=== PATIENT | female | born 1975 | race Caucasian/White ===

== ENCOUNTER 2024-03-23 18:28 | Emergency (ER) | payer OTHER ==
[~2024-03-23] VITALS: Ht 170.2 cm; Wt 77.0 kg
[2024-03-23 19:23] LABS: BASOPHILS % 0.3 % (0.0-2.0); EOSINOPHILS % 1.4 % (0.0-5.0); HEMOGLOBIN. 13.4 g/dL (12.0-16.0); LYMPHOCYTES % 33.7 % (20.0-50.0); MEAN CORPUSCULAR HEMOGLOBIN 30.3 pg (28.0-32.0); MEAN CORPUSCULAR HGB CONC 34.5 g/dL (31.0-37.0); MEAN CORPUSCULAR VOLUME 87.9 fL (81.0-99.0); MEAN PLATELET VOLUME 8.2 fl (7.4-10.4); MONOCYTES % 9.4 % (2.0-8.0); NEUTROPHILS % 55.2 % (40.0-76.0); PLATELET 238 x1000/uL (130-400); RED BLOOD CELL COUNT 4.43 mill/uL (4.2-5.4); RED CELL DISTRIBUTION WIDTH 16.6 % (11.6-14.6)
[2024-03-23 19:29] LABS: CHLORIDE 105 mEq/L (98-107); SODIUM 139 mEq/L (136-145)
[2024-03-23 19:30] LABS: CALCIUM 9.5 mg/dL (8.7-10.4); CARBON DIOXIDE 28 mEq/L (21-32)
[2024-03-23] MEDS: OLANZAPINE 10 MG/VIAL IM ONE (19:30)
[2024-03-23 19:35] LABS: CREATININE 1.1 mg/dL (0.6-1.0); GLUCOSE 79 mg/dL (70-105); UREA NITROGEN BLOOD 17 mg/dL (9-23)
[2024-03-23 19:36] LABS: ETHANOL BLOOD < 10 mg/dL (<10)
[2024-03-23 19:37] LABS: ACETAMINOPHEN < 2 ug/mL (10-30)
[2024-03-23] MEDS: HALOPERIDOL LACTATE 5MG/ML VIAL IM ONE (20:00)
[2024-03-23] MEDS: POTASSIUM CHLORIDE 20MEQ/PACKET PO ONE (20:30)
[2024-03-23] MEDS: POTASSIUM CHLORIDE 20MEQ/PACKET PO NR (22:55)
[2024-03-23] MEDS: ACETAMINOPHEN 325MG TABLET PO ONE (22:55)
[2024-03-23] MEDS: HALOPERIDOL LACTATE 5MG/ML VIAL IM NR (22:56)
[2024-03-24] MEDS: ACETAMINOPHEN 500MG TABLET PO ONE (05:50)
[2024-03-24] MEDS: MIDAZOLAM HCL 2 MG/2 ML VIAL IM ONE (12:23)
[2024-03-24] MEDS: HALOPERIDOL LACTATE 5MG/ML VIAL IM ONE (12:23)
[2024-03-24 13:17] VITALS: O2SAT 99
[2024-03-24] MEDS ORDERED: OLANZAPINE 10MG TABLET PO SCH (20:30)
[2024-03-24 20:41] LABS: CLARITY URINE CLEAR (CLEAR); COLOR URINE YELLOW (YELLOW); GLUCOSE URINE NEGATIVE (NEGATIVE); KETONES URINE NEGATIVE (NEGATIVE); LEUKOCYTE ESTERASE URINE TRACE (NEGATIVE); NITRITE URINE NEGATIVE (NEGATIVE); OCCULT BLOOD URINE NEGATIVE (NEGATIVE); PH URINE 7.5 (4.5-8.0); PROTEIN URINE NEGATIVE (NEGATIVE); SPECIFIC GRAVITY URINE 1.013 (1.005-1.030)
[2024-03-24 20:49] LABS: *AMPHETAMINES SCREEN URINE PRESUMPTIVE POSITIVE (NEGATIVE); *BARBITURATES SCREEN URINE NEGATIVE (NEGATIVE); *BENZODIAZEPINES SCREEN URINE PRESUMPTIVE POSITIVE (NEGATIVE); *COCAINE SCREEN URINE NEGATIVE (NEGATIVE); CANNABINOID URINE SCREEN PRESUMPTIVE POSITIVE (NEGATIVE); ECSTASY MDMA SCREEN URINE NEGATIVE (NEGATIVE); METHADONE URINE SCREEN NEGATIVE (NEGATIVE); OPIATES URINE SCREEN NEGATIVE (NEGATIVE); PHENCYCLIDINE URINE SCREEN NEGATIVE (NEGATIVE)
[2024-03-24 20:57] LABS: BACTERIA URINE 1+; SQUAMOUS EPITHELIAL CELL URINE FEW /lpf (RARE/1+)
[2024-03-24 20:58] LABS: RBC URINE 0-2 /hpf (0-2); WBC URINE 0-2 /hpf (0-2)
[2024-03-24] MEDS: OLANZAPINE 5MG TABLET ODT PO SCH (21:26)
[2024-03-25] MEDS: HALOPERIDOL LACTATE 5MG/ML VIAL IM ONE (10:49)
[2024-03-25] MEDS: LORAZEPAM 2MG/ML INJ IM ONE (10:49)
[2024-03-25] MEDS: TRAZODONE HCL 50MG TABLET PO SCH (17:35)
[2024-03-25] MEDS: DIPHENHYDRAMINE 50MG/ML VIAL IM PRN (19:19)
[2024-03-27 10:15] VITALS: BP 141/79; PULSE 70; RESP 16; TEMP 98.7
== END 2024-03-27 10:30 | disposition home or self-care (01) ==
LOC: ER 18:28
DX: R45.851 Suicidal ideations (principal); F23 Brief psychotic disorder; Z98.890 Other specified postprocedural states; Z20.822 Contact with and (suspected) exposure to COVID-19
CPT/HCPCS: 80305; 80048; 81003; 80307; 80329; 80320; 85025; 36415; 96372 ×3; 99291; 87426; J3490; J1630 ×2; J2060; J2250; Z7610 ×2; G0480

== ENCOUNTER 2024-04-08 14:23 | Emergency (ER) | payer OTHER ==
[~2024-04-08] VITALS: Ht 177.8 cm; Wt 90.0 kg
[2024-04-08 14:25] VITALS: O2SAT 99
[2024-04-08 16:16] LABS: BASOPHILS % 0.4 % (0.0-2.0); EOSINOPHILS % 1.6 % (0.0-5.0); HEMOGLOBIN. 12.4 g/dL (12.0-16.0); LYMPHOCYTES % 18.8 % (20.0-50.0); MEAN CORPUSCULAR HEMOGLOBIN 30.1 pg (28.0-32.0); MEAN CORPUSCULAR HGB CONC 33.5 g/dL (31.0-37.0); MEAN CORPUSCULAR VOLUME 89.9 fL (81.0-99.0); MEAN PLATELET VOLUME 8.1 fl (7.4-10.4); MONOCYTES % 11.9 % (2.0-8.0); NEUTROPHILS % 67.3 % (40.0-76.0); PLATELET 171 x1000/uL (130-400); RED BLOOD CELL COUNT 4.11 mill/uL (4.2-5.4); RED CELL DISTRIBUTION WIDTH 14.9 % (11.6-14.6); WHITE BLOOD COUNT 4.3 x1000/uL (4.5-11.0)
[2024-04-08 16:22] LABS: CHLORIDE 106 mEq/L (98-107); SODIUM 142 mEq/L (136-145)
[2024-04-08 16:23] LABS: CALCIUM 9.3 mg/dL (8.7-10.4); CARBON DIOXIDE 29 mEq/L (21-32)
[2024-04-08 16:28] LABS: CREATININE 1.1 mg/dL (0.6-1.0); GLUCOSE 112 mg/dL (70-105); UREA NITROGEN BLOOD 16 mg/dL (9-23)
[2024-04-08 16:30] LABS: ACETAMINOPHEN < 2 ug/mL (10-30)
[2024-04-08 16:37] LABS: HCG SCREEN NEGATIVE
[2024-04-08 16:38] LABS: ETHANOL BLOOD < 10 mg/dL (<10); POTASSIUM 2.8 mEq/L (3.5-5.1)
[2024-04-09 01:00] LABS: CLARITY URINE CLOUDY (CLEAR); COLOR URINE YELLOW (YELLOW); GLUCOSE URINE NEGATIVE (NEGATIVE); KETONES URINE NEGATIVE (NEGATIVE); LEUKOCYTE ESTERASE URINE NEGATIVE (NEGATIVE); NITRITE URINE NEGATIVE (NEGATIVE); OCCULT BLOOD URINE NEGATIVE (NEGATIVE); PH URINE 7.5 (4.5-8.0); PROTEIN URINE NEGATIVE (NEGATIVE); SPECIFIC GRAVITY URINE 1.015 (1.005-1.030)
[2024-04-09 01:07] LABS: *AMPHETAMINES SCREEN URINE PRESUMPTIVE POSITIVE (NEGATIVE); *BARBITURATES SCREEN URINE NEGATIVE (NEGATIVE); *BENZODIAZEPINES SCREEN URINE NEGATIVE (NEGATIVE); *COCAINE SCREEN URINE NEGATIVE (NEGATIVE); ECSTASY MDMA SCREEN URINE NEGATIVE (NEGATIVE); METHADONE URINE SCREEN NEGATIVE (NEGATIVE); OPIATES URINE SCREEN NEGATIVE (NEGATIVE); PHENCYCLIDINE URINE SCREEN NEGATIVE (NEGATIVE)
[2024-04-09] MEDS: MELATONIN 3MG TABLET PO SCH (01:15)
[2024-04-09] MEDS: DIPHENHYDRAMINE 25MG CAPSULE PO ONE (01:32)
[2024-04-09] MEDS: OLANZAPINE 10MG TABLET PO SCH (01:32)
[2024-04-09 02:43] LABS: SQUAMOUS EPITHELIAL CELL URINE FEW /lpf (RARE/1+)
[2024-04-09 02:46] LABS: RBC URINE 0-2 /hpf (0-2); WBC URINE 0-2 /hpf (0-2)
[2024-04-09 02:47] LABS: AMORPHOUS SEDIMENT URINE 1+ /lpf; BACTERIA URINE NONE SEEN
[2024-04-09 06:39] LABS: CHLORIDE 104 mEq/L (98-107); SODIUM 140 mEq/L (136-145)
[2024-04-09 06:40] LABS: CALCIUM 8.8 mg/dL (8.7-10.4); CARBON DIOXIDE 30 mEq/L (21-32)
[2024-04-09 06:45] LABS: CREATININE 0.7 mg/dL (0.6-1.0); GLUCOSE 77 mg/dL (70-105); UREA NITROGEN BLOOD 13 mg/dL (9-23)
[2024-04-09] MEDS: POTASSIUM CHLORIDE 20MEQ TABLET SR PO NR (07:00)
[2024-04-09 08:47] LABS: POTASSIUM 2.8 mEq/L (3.5-5.1)
[2024-04-09] MEDS: POTASSIUM CHLORIDE 20MEQ/PACKET PO ONE (09:55)
[2024-04-09] MEDS: HALOPERIDOL LACTATE 5MG/ML VIAL IM ONE (11:22)
[2024-04-09] MEDS: LORAZEPAM 2MG/ML INJ IM ONE (11:22)
[2024-04-09] MEDS: KCL 20MEQ/100ML PREMIX 100 ML IV ONE (15:00)
[2024-04-09] MEDS: MAGNESIUM 1 G PREMIX 100 ML IV ONE (15:00)
[2024-04-09] MEDS ORDERED: POTASSIUM CHLORIDE 20MEQ/PACKET PO ONE (15:00)
[2024-04-09 15:49] LABS: CHLORIDE 103 mEq/L (98-107); POTASSIUM 3.1 mEq/L (3.5-5.1); SODIUM 138 mEq/L (136-145)
[2024-04-09 15:50] LABS: CARBON DIOXIDE 30 mEq/L (21-32)
[2024-04-09 15:51] LABS: CALCIUM 8.8 mg/dL (8.7-10.4)
[2024-04-09 15:55] LABS: CREATININE 0.7 mg/dL (0.6-1.0); GLUCOSE 84 mg/dL (70-105); UREA NITROGEN BLOOD 13 mg/dL (9-23)
[2024-04-09] MEDS: MAGNESIUM OXIDE 400MG TABLET PO SCH (18:04)
[2024-04-09] MEDS: POTASSIUM CHLORIDE 20MEQ/PACKET PO NR (18:05)
[2024-04-09 21:41] LABS: CHLORIDE 103 mEq/L (98-107); POTASSIUM 3.4 mEq/L (3.5-5.1); SODIUM 138 mEq/L (136-145)
[2024-04-09 21:42] LABS: CARBON DIOXIDE 29 mEq/L (21-32)
[2024-04-09 21:47] LABS: CREATININE 0.8 mg/dL (0.6-1.0); GLUCOSE 103 mg/dL (70-105); UREA NITROGEN BLOOD 11 mg/dL (9-23)
[2024-04-10] MEDS: MAGNESIUM OXIDE 400MG TABLET PO SCH (01:26)
[2024-04-10 13:15] VITALS: BP 144/70; PULSE 66; RESP 16; TEMP 97.9
== END 2024-04-10 13:21 ==
LOC: ER 14:32
DX: R45.851 Suicidal ideations (principal); F20.9 Schizophrenia, unspecified; I10 Essential (primary) hypertension; F12.90 Cannabis use, unspecified, uncomplicated; F15.90 Other stimulant use, unspecified, uncomplicated
CPT/HCPCS: 80305; 80048; 81003; 80307; 80329; 80320; 84703; 83735; 85025; 36415; 99285; 87426; 96372; Z7610; Q0163; J1630; J2060; G0480

== ENCOUNTER 2024-05-10 20:50 | Emergency (ER) | payer OTHER ==
[~2024-05-10] VITALS: Ht 167.6 cm; Wt 113.0 kg
[2024-05-10] MEDS: MIDAZOLAM HCL 2 MG/2 ML VIAL IM NR (22:15)
[2024-05-10] MEDS: HALOPERIDOL LACTATE 5MG/ML VIAL IM NR (22:15)
[2024-05-11] MEDS: MIDAZOLAM HCL 2 MG/2 ML VIAL IM ONE ×2 (02:46→04:51)
[2024-05-11] MEDS: DIPHENHYDRAMINE 50MG/ML VIAL IM ONE (05:00)
[2024-05-11] MEDS: DIPHENHYDRAMINE 50MG/ML VIAL IM NR (07:02)
[2024-05-11 07:08] VITALS: TEMP 98.2
[2024-05-11 07:58] VITALS: O2SAT 98
[2024-05-11] MEDS: LORAZEPAM 2MG/ML INJ IM ONE (08:58)
[2024-05-11] MEDS: OLANZAPINE 10 MG/VIAL IM ONE (08:58)
[2024-05-11 16:05] VITALS: BP 139/75; PULSE 89; RESP 17
[2024-05-11] MEDS: METFORMIN HCL 500MG TABLET PO SCH (17:00)
== END 2024-05-11 17:37 | disposition home or self-care (01) ==
LOC: ER 20:50
DX: R45.1 Restlessness and agitation (principal); F12.10 Cannabis abuse, uncomplicated; F15.10 Other stimulant abuse, uncomplicated; I10 Essential (primary) hypertension; E11.9 Type 2 diabetes mellitus without complications; M54.2 Cervicalgia; Z98.890 Other specified postprocedural states; W01.0XXA Fall on same level from slipping, tripping and stumbling without subsequent striking against object, initial encounter; Y93.89 Activity, other specified; Y92.89 Other specified places as the place of occurrence of the external cause; Y99.8 Other external cause status
CPT/HCPCS: 96372 ×2; 99291; 70450; 72125; J1630; J2250 ×2; Z7610 ×7; J3490; J1200; J2060; C1893; 80305

== ENCOUNTER 2024-05-13 01:03 | Emergency (ER) | payer OTHER ==
[~2024-05-13] VITALS: Ht 167.6 cm; Wt 77.0 kg
[2024-05-13 01:08] VITALS: BP 130/61; PULSE 70; RESP 16; TEMP 98.5; O2SAT 98
== END 2024-05-13 04:17 | disposition home or self-care (01) ==
LOC: ER 01:03
DX: R45.1 Restlessness and agitation (principal); F41.9 Anxiety disorder, unspecified; E11.9 Type 2 diabetes mellitus without complications; I10 Essential (primary) hypertension; Z98.890 Other specified postprocedural states
CPT/HCPCS: 99283

== ENCOUNTER 2024-05-15 08:46 | Emergency (ER) | payer OTHER ==
[~2024-05-15] VITALS: Ht 170.2 cm; Wt 80.0 kg
[2024-05-15 08:50] VITALS: BP 127/93; PULSE 64; RESP 16; O2SAT 98
[2024-05-15] MEDS ORDERED: TOPUD PO (08:54)
[2024-05-15 09:09] VITALS: TEMP 98.2
[2024-05-15] MEDS: ACETAMINOPHEN 325MG TABLET PO ONE (09:09)
== END 2024-05-15 09:53 | disposition home or self-care (01) ==
LOC: ER 08:46
DX: G89.29 Other chronic pain (principal); M79.10 Myalgia, unspecified site; E11.9 Type 2 diabetes mellitus without complications; I10 Essential (primary) hypertension
CPT/HCPCS: 99283

== ENCOUNTER 2024-05-15 15:13 | Emergency (ER) | payer OTHER ==
[~2024-05-15] VITALS: Ht 182.9 cm; Wt 110.0 kg
[~2024-05-15 15:13] MED LIST: TOPUD PO
[2024-05-15 15:16] VITALS: O2SAT 98
[2024-05-15] MEDS: HALOPERIDOL LACTATE 5MG/ML VIAL IM ONE (15:43)
[2024-05-15] MEDS: LORAZEPAM 2MG/ML INJ IM ONE (15:43)
[2024-05-15 20:23] VITALS: BP 143/66; PULSE 70; RESP 16; TEMP 98.5
== END 2024-05-15 20:24 | disposition home or self-care (01) ==
LOC: ER 15:13
DX: F10.129 Alcohol abuse with intoxication, unspecified (principal); E11.9 Type 2 diabetes mellitus without complications; I10 Essential (primary) hypertension; G31.89 Other specified degenerative diseases of nervous system; Y90.9 Presence of alcohol in blood, level not specified
CPT/HCPCS: 70450; 72125; 96372; 99291; J1630; J2060; Z7610

== ENCOUNTER 2024-05-16 14:53 | Emergency (ER) | payer OTHER ==
[~2024-05-16] VITALS: Ht 170.2 cm; Wt 70.0 kg
[2024-05-16 14:57] VITALS: BP 116/78; PULSE 79; RESP 20; TEMP 98.6; O2SAT 99
== END 2024-05-16 16:53 | disposition left against medical advice (07) ==
LOC: ER 14:53
DX: R51.9 Headache, unspecified (principal); Z53.21 Procedure and treatment not carried out due to patient leaving prior to being seen by health care provider

== ENCOUNTER 2024-05-28 15:33 | Emergency (ER) | payer OTHER ==
[~2024-05-28] VITALS: Ht 165.1 cm; Wt 80.0 kg
[2024-05-28 15:52] VITALS: BP 116/82; PULSE 66; RESP 18; TEMP 98.7; O2SAT 99
== END 2024-05-28 19:45 | disposition left against medical advice (07) ==
LOC: ER 15:33
DX: M25.562 Pain in left knee (principal); Z53.21 Procedure and treatment not carried out due to patient leaving prior to being seen by health care provider

== ENCOUNTER 2024-05-29 07:20 | Emergency (ER) | payer OTHER ==
[~2024-05-29] VITALS: Ht 167.6 cm; Wt 82.0 kg
[2024-05-29 07:33] VITALS: BP 126/73; PULSE 68; RESP 18; O2SAT 97
[2024-05-29 09:03] VITALS: TEMP 98.5
[2024-05-29] MEDS: ACETAMINOPHEN 500MG TABLET PO SCH (09:03)
[2024-05-30] MEDS ORDERED: SULF1TAB48 MT (10:54)
[2024-05-30] MEDS ORDERED: CEPH500C2 MT (10:54)
[2024-05-30] MEDS ORDERED: IBUP-2029 MT (10:55)
== END 2024-05-29 09:22 | disposition home or self-care (01) ==
LOC: ER 07:20
DX: R52 Pain, unspecified (principal); E11.9 Type 2 diabetes mellitus without complications; I10 Essential (primary) hypertension; F10.20 Alcohol dependence, uncomplicated; Y90.9 Presence of alcohol in blood, level not specified
CPT/HCPCS: 99283

== ENCOUNTER 2024-05-29 12:24 | Emergency (ER) | payer OTHER ==
[~2024-05-29] VITALS: Ht 170.2 cm; Wt 75.0 kg
[2024-05-29 12:29] VITALS: BP 104/63; PULSE 71; RESP 18; TEMP 98.4; O2SAT 99
[2024-05-29 13:16] LABS: CHLORIDE 99 mEq/L (98-107); SODIUM 136 mEq/L (136-145)
[2024-05-29 13:17] LABS: CARBON DIOXIDE 32 mEq/L (21-32)
[2024-05-29 13:18] LABS: CALCIUM 9.4 mg/dL (8.7-10.4)
[2024-05-29 13:21] LABS: BASOPHILS % 0.3 % (0.0-2.0); EOSINOPHILS % 0.8 % (0.0-5.0); HEMATOCRIT. 34.5 % (36.0-48.0); HEMOGLOBIN. 11.7 g/dL (12.0-16.0); LYMPHOCYTES % 14.5 % (20.0-50.0); MEAN CORPUSCULAR HEMOGLOBIN 29.8 pg (28.0-32.0); MEAN CORPUSCULAR HGB CONC 33.9 g/dL (31.0-37.0); MEAN PLATELET VOLUME 7.9 fl (7.4-10.4); MONOCYTES % 8.4 % (2.0-8.0); PLATELET 280 x1000/uL (130-400); RED BLOOD CELL COUNT 3.92 mill/uL (4.2-5.4); RED CELL DISTRIBUTION WIDTH 13.3 % (11.6-14.6); WHITE BLOOD COUNT 7.8 x1000/uL (4.5-11.0)
[2024-05-29 13:22] LABS: GLUCOSE 143 mg/dL (70-105); UREA NITROGEN BLOOD 37 mg/dL (9-23)
[2024-05-29 13:24] LABS: ACETAMINOPHEN 3 ug/mL (10-30)
[2024-05-29 13:39] LABS: POTASSIUM 2.5 mEq/L (3.5-5.1)
[2024-05-29 13:40] LABS: CREATININE 1.8 mg/dL (0.6-1.0); ETHANOL BLOOD < 10 mg/dL (<10)
[2024-05-29] MEDS ORDERED: POTASSIUM CHLORIDE 20MEQ TABLET SR PO NR (14:45)
[2024-05-29] MEDS ORDERED: KCL 20MEQ/100ML PREMIX 100 ML IV SCH (15:00)
[2024-05-30] MEDS ORDERED: CEPH500C2 MT (10:54)
[2024-05-30] MEDS ORDERED: SULF1TAB48 MT (10:54)
[2024-05-30] MEDS ORDERED: IBUP-2029 MT (10:55)
== END 2024-05-29 14:51 | disposition left against medical advice (07) ==
LOC: ER 12:24
DX: E87.6 Hypokalemia (principal); R44.0 Auditory hallucinations; E11.9 Type 2 diabetes mellitus without complications; I10 Essential (primary) hypertension; F10.20 Alcohol dependence, uncomplicated; Y90.0 Blood alcohol level of less than 20 mg/100 ml
CPT/HCPCS: 36415; 80048; 80307; 80320; 80329; 85025; 99283; G0480

== ENCOUNTER 2024-05-30 09:30 | Emergency (ER) | payer OTHER ==
[~2024-05-30] VITALS: Ht 185.4 cm; Wt 90.0 kg
[2024-05-30 09:48] VITALS: TEMP 97.4
[2024-05-30 10:15] VITALS: BP 117/65; PULSE 75; RESP 18
[2024-05-30] MEDS: IBUPROFEN 600MG TABLET PO ONE (10:15)
[2024-05-30] MEDS ORDERED: SULF1TAB48 MT (10:54)
[2024-05-30] MEDS ORDERED: CEPH500C2 MT (10:54)
[2024-05-30] MEDS ORDERED: IBUP-2029 MT (10:55)
== END 2024-05-30 11:20 | disposition home or self-care (01) ==
LOC: ER 09:36
DX: M17.12 Unilateral primary osteoarthritis, left knee (principal); L03.116 Cellulitis of left lower limb; F10.20 Alcohol dependence, uncomplicated; E11.9 Type 2 diabetes mellitus without complications; I10 Essential (primary) hypertension; Y90.9 Presence of alcohol in blood, level not specified
CPT/HCPCS: 73562; 81025; 99283

== ENCOUNTER 2024-05-30 15:30 | Emergency (ER) | payer OTHER ==
[~2024-05-30] VITALS: Ht 165.1 cm; Wt 65.0 kg
[~2024-05-30 15:30] MED LIST changes: +CEPH500C2 MT; +IBUP-2029 MT; +SULF1TAB48 MT
[2024-05-30 15:32] VITALS: BP 111/68; PULSE 70; RESP 16; TEMP 98.6; O2SAT 100
== END 2024-05-30 17:45 | disposition left against medical advice (07) ==
LOC: ER 15:30
DX: H92.09 Otalgia, unspecified ear (principal); Z53.21 Procedure and treatment not carried out due to patient leaving prior to being seen by health care provider
CPT/HCPCS: Z7610 ×2

== ENCOUNTER 2024-06-01 22:31 | Inpatient (IN) | payer OTHER ==
[~2024-06-01] VITALS: Ht 175.3 cm; Wt 89.1 kg
[2024-06-01 23:20] LABS: CHLORIDE 101 mEq/L (98-107); SODIUM 138 mEq/L (136-145)
[2024-06-01 23:21] LABS: CARBON DIOXIDE 31 mEq/L (21-32)
[2024-06-01 23:22] LABS: CALCIUM 9.8 mg/dL (8.7-10.4)
[2024-06-01 23:25] LABS: HEMOGLOBIN. 10.1 g/dL (12.0-16.0); MEAN CORPUSCULAR HEMOGLOBIN 29.8 pg (28.0-32.0); MEAN CORPUSCULAR HGB CONC 33.8 g/dL (31.0-37.0); MEAN CORPUSCULAR VOLUME 88.1 fL (81.0-99.0); MEAN PLATELET VOLUME 7.3 fl (7.4-10.4); PLATELET 321 x1000/uL (130-400); RED CELL DISTRIBUTION WIDTH 13.1 % (11.6-14.6); WHITE BLOOD COUNT 6.4 x1000/uL (4.5-11.0)
[2024-06-01 23:26] LABS: GLUCOSE 85 mg/dL (70-105); UREA NITROGEN BLOOD 51 mg/dL (9-23)
[2024-06-01 23:28] LABS: ACETAMINOPHEN < 2 ug/mL (10-30); CREATININE 4.6 mg/dL (0.6-1.0); ETHANOL BLOOD < 10 mg/dL (<10); POTASSIUM 2.3 mEq/L (3.5-5.1)
[2024-06-01 23:34] LABS: HCG SCREEN NEGATIVE
[2024-06-01 23:39] LABS: DIFFERENTIAL COMMENT 1
[2024-06-01 23:49] LABS: PHOSPHORUS 3.6 mg/dL (2.5-4.9)
[2024-06-02] MEDS: HALOPERIDOL LACTATE 5MG/ML VIAL IM ONE ×2 (00:07→02:42)
[2024-06-02] MEDS: SODIUM CHLORIDE 0.9% 1,000 ML IV ONE ×2 (02:07→02:09)
[2024-06-02] MEDS: DIPHENHYDRAMINE 50MG/ML VIAL IM PRN (02:41)
[2024-06-02 02:42] VITALS: O2SAT 98
[2024-06-02] MEDS: MIDAZOLAM HCL 2 MG/2 ML VIAL IM ONE (02:42)
[2024-06-02] MEDS: LORAZEPAM 2MG/ML INJ IM ONE (02:42)
[2024-06-02] MEDS: POTASSIUM CHLORIDE 20MEQ/PACKET PO ONE (02:43)
[2024-06-02] MEDS: KCL 20MEQ/100ML PREMIX 100 ML IV SCH (02:43)
[2024-06-02 05:11] LABS: PLATELET ESTIMATE NORMAL
[2024-06-02 08:00] VITALS: BP 157/64; PULSE 68; RESP 18; TEMP 97.1
[2024-06-02 08:22] VITALS: BP 157/64; PULSE 68; RESP 18; TEMP 97.1
[2024-06-02 12:00] VITALS: BP 128/62; PULSE 65; RESP 19; TEMP 97.5
[2024-06-02] MEDS ORDERED: CLONIDINE 0.1MG TABLET PO PRN (13:30)
[2024-06-02] MEDS ORDERED: IPRATROPIUM/ALBUTEROL 0.5-3(2.5)MG/3ML NEB HHN PRN (13:30)
[2024-06-02] MEDS ORDERED: DOCUSATE SODIUM 100MG CAPSULE PO PRN (13:30)
[2024-06-02] MEDS ORDERED: ONDANSETRON HCL 4MG/2ML INJ IV PRN (13:30)
[2024-06-02] MEDS ORDERED: ACETAMINOPHEN 325MG TABLET PO PRN ×2 (13:30)
[2024-06-02] MEDS: DEXT 5%/0.45% NACL 1000ML 1,000 ML IV SCH (14:00)
[2024-06-02] MEDS: HYDRALAZINE HCL 25MG TABLET PO SCH (14:56)
[2024-06-02 15:29] LABS: BASOPHILS % 0.3 % (0.0-2.0); EOSINOPHILS % 2.5 % (0.0-5.0); HEMATOCRIT. 32.7 % (36.0-48.0); HEMOGLOBIN. 11.1 g/dL (12.0-16.0); LYMPHOCYTES % 19.8 % (20.0-50.0); MEAN CORPUSCULAR HEMOGLOBIN 30.1 pg (28.0-32.0); MEAN CORPUSCULAR HGB CONC 33.9 g/dL (31.0-37.0); MEAN CORPUSCULAR VOLUME 88.8 fL (81.0-99.0); MEAN PLATELET VOLUME 7.3 fl (7.4-10.4); MONOCYTES % 12.2 % (2.0-8.0); NEUTROPHILS % 65.2 % (40.0-76.0); PLATELET 299 x1000/uL (130-400); RED BLOOD CELL COUNT 3.68 mill/uL (4.2-5.4); WHITE BLOOD COUNT 4.9 x1000/uL (4.5-11.0)
[2024-06-02 15:36] LABS: D-DIMER 2.77 mg/L FEU (<0.50); PROTHROMBIN TIME 11.4 sec (9.6-11.0)
[2024-06-02 15:37] LABS: CHLORIDE 103 mEq/L (98-107); SODIUM 140 mEq/L (136-145)
[2024-06-02 15:38] LABS: CARBON DIOXIDE 31 mEq/L (21-32)
[2024-06-02 15:43] LABS: GLUCOSE 95 mg/dL (70-105)
[2024-06-02 15:44] LABS: AMMONIA < 17 uMol/L (<32); LDL CHOLESTEROL 60 mg/dL (5-100); TRIGLYCERIDE 110 mg/dL (0-150); TROPONIN I HIGH SENSITIVITY 22 ng/L (3.0-34); UREA NITROGEN BLOOD 40 mg/dL (9-23)
[2024-06-02 15:45] LABS: ALANINE AMINOTRANSFERASE 52 IU/L (10-49); ALBUMIN 3.4 g/dL (3.2-4.8); ASPARTATE AMINOTRANSFERASE 72 IU/L (<34); BILIRUBIN DIRECT 0.3 mg/dL (<=3.0); CHOLESTEROL 104 mg/dL (<200); CREATINE KINASE 670 IU/L (34-145); HDL CHOLESTEROL 23 mg/dL (>65)
[2024-06-02 15:46] LABS: BILIRUBIN TOTAL 0.7 mg/dL (0.1-1.0); PROTEIN TOTAL 6.5 g/dL (6.0-8.3)
[2024-06-02 15:52] LABS: CREATININE 2.6 mg/dL (0.6-1.0); POTASSIUM 2.5 mEq/L (3.5-5.1)
[2024-06-02] MEDS: HALOPERIDOL LACTATE 5MG/ML VIAL IM NR (17:34)
[2024-06-02] MEDS: DIPHENHYDRAMINE 50MG/ML VIAL IV NR (17:35)
[2024-06-02] MEDS: POTASSIUM CHLORIDE 20MEQ TABLET SR PO SCH (17:45)
[2024-06-02] MEDS: POTASSIUM CHLORIDE 20MEQ TABLET SR PO NR (17:45)
[2024-06-02 20:00] VITALS: BP 112/52; PULSE 72; RESP 19; TEMP 97.7
[2024-06-02] MEDS: DIPHENHYDRAMINE 50MG/ML VIAL IV PRN (21:41)
[2024-06-02] MEDS: HALOPERIDOL LACTATE 5MG/ML VIAL IM PRN (21:42)
[2024-06-02] MEDS: LORAZEPAM 2MG/ML INJ IM PRN (23:00)
[2024-06-03] VITALS: BP 122/50; PULSE 87; RESP 18; TEMP 97.8
[2024-06-03 04:00] VITALS: BP 127/77; PULSE 69; RESP 18; TEMP 98.2
[2024-06-03 08:00] VITALS: BP 140/62; PULSE 70; RESP 20; TEMP 97.2
[2024-06-03 08:40] LABS: CHLORIDE 104 mEq/L (98-107); SODIUM 139 mEq/L (136-145)
[2024-06-03 08:41] LABS: CARBON DIOXIDE 30 mEq/L (21-32)
[2024-06-03 08:46] LABS: GLUCOSE 96 mg/dL (70-105); UREA NITROGEN BLOOD 32 mg/dL (9-23)
[2024-06-03 08:47] LABS: ALANINE AMINOTRANSFERASE 46 IU/L (10-49); BASOPHILS % 0.5 % (0.0-2.0); EOSINOPHILS % 1.7 % (0.0-5.0); HEMATOCRIT. 30.9 % (36.0-48.0); HEMOGLOBIN. 10.5 g/dL (12.0-16.0); LYMPHOCYTES % 16.3 % (20.0-50.0); MEAN CORPUSCULAR HEMOGLOBIN 30.8 pg (28.0-32.0); MEAN CORPUSCULAR HGB CONC 34.1 g/dL (31.0-37.0); MEAN CORPUSCULAR VOLUME 90.2 fL (81.0-99.0); MEAN PLATELET VOLUME 7.9 fl (7.4-10.4); MONOCYTES % 12.2 % (2.0-8.0); NEUTROPHILS % 69.3 % (40.0-76.0); PLATELET 282 x1000/uL (130-400); RED BLOOD CELL COUNT 3.43 mill/uL (4.2-5.4); RED CELL DISTRIBUTION WIDTH 13.3 % (11.6-14.6); WHITE BLOOD COUNT 5.8 x1000/uL (4.5-11.0)
[2024-06-03 08:48] LABS: ALBUMIN 3.3 g/dL (3.2-4.8); ASPARTATE AMINOTRANSFERASE 64 IU/L (<34); BILIRUBIN DIRECT 0.2 mg/dL (<=3.0); BILIRUBIN TOTAL 0.5 mg/dL (0.1-1.0); PROTEIN TOTAL 6.5 g/dL (6.0-8.3)
[2024-06-03 08:51] LABS: CREATININE 1.6 mg/dL (0.6-1.0)
[2024-06-03 12:00] VITALS: BP 132/78; PULSE 74; RESP 20; TEMP 98.1
[2024-06-03] MEDS: KCL 20MEQ/100ML PREMIX 100 ML IV SCH (15:28)
[2024-06-03 16:00] VITALS: BP 136/80; PULSE 74; RESP 20; TEMP 98
[2024-06-03 20:00] VITALS: BP 125/65; PULSE 80; RESP 20; TEMP 97.9
[2024-06-04 00:10] VITALS: BP 143/69; PULSE 79; RESP 20; TEMP 97.9
[2024-06-04 04:18] VITALS: BP 131/65; PULSE 63; RESP 18; TEMP 98.1
[2024-06-04 07:34] LABS: CALCIUM 8.8 mg/dL (8.7-10.4); POTASSIUM 3.2 mEq/L (3.5-5.1)
[2024-06-04 07:40] LABS: CREATININE 1.1 mg/dL (0.6-1.0)
[2024-06-04 08:00] VITALS: BP_SYST 90; PULSE 71; RESP 18; TEMP 97.9
[2024-06-04] MEDS: POTASSIUM CHLORIDE 20MEQ TABLET SR PO NR (08:18)
[2024-06-04] MEDS: RISPERIDONE 1MG TABLET PO SCH (08:18)
== END 2024-06-04 09:00 | disposition left against medical advice (07) | DRG 52 ==
LOC: ER 22:31 → 7WST 06-02 03:31 → EDBEDREQTM 06-02 03:48 → EDBEDREQ 06-02 03:48 → 7WST 06-02 08:17
PROVIDERS: ADMIT Internal Medicine; ATTEND Internal Medicine
DX: G93.40 Encephalopathy, unspecified (principal); N17.9 Acute kidney failure, unspecified; M62.82 Rhabdomyolysis; E11.9 Type 2 diabetes mellitus without complications; E87.6 Hypokalemia; D64.9 Anemia, unspecified; Z53.29 Procedure and treatment not carried out because of patient's decision for other reasons; I10 Essential (primary) hypertension; F20.9 Schizophrenia, unspecified; Z20.822 Contact with and (suspected) exposure to COVID-19; F39 Unspecified mood [affective] disorder
CPT/HCPCS: 36415; 71045; 80048; 80061; 80076; 80307; 80320; 80329; 82140; 82550; 82553; 83036; 83605; 83735; 83880; 84100; 84145; 84484; 84703; 85025; 85379; 87426; 93005; 99291; J1200; J1630; J2060; J2250; J3480; J7030; G0480